=== PATIENT | female | born 1965 | race American Indian/Alaskan Native ===

== ENCOUNTER 2016-12-03 02:47 | Emergency (ER) | payer MEDICAID ==
--- NOTE | 2016-12-03 04:41 | XRay Report ---
FINAL REPORT PROCEDURE: XR CHEST ROUTINE 2V TECHNIQUE: PA and lateral chest radiographs were obtained. CPT 39294 HISTORY: Shortness of breath COMPARISON: No prior studies are available for comparison. FINDINGS: Heart: Normal. Mediastinum/Vessels: Normal. Lungs/Pleural space: There is scarring at the right lung apex. Lungs are clear and expanded. There are no effusions or pneumothoraces.. Bony thorax: No acute osseous abnormality. Other: There is a right-sided PICC line which is coiled in the right internal jugular vein. IMPRESSION: The heart size is normal.. There is scarring at the right lung apex. Lungs are clear and expanded. There are no effusions or pneumothoraces.. There is a right-sided PICC line which is coiled in the right internal jugular vein.
[2016-12-03 05:15] LABS: Basophils % (Auto) 0.2 % (0.0-1.8); Hematocrit 36.2 % (30.3-42.9); Hemoglobin 11.8 gm/dl (10.1-14.3); Mean Corpuscular HGB Conc 33 % (30-34); Mean Corpuscular Hemoglobin 29 pg (28-32); Mean Corpuscular Volume 89 fl (79-97); Platelet Count 213 K/mm3 (140-440); Red Blood Count 4.05 M/mm3 (3.65-5.03); Red Cell Distribution Width 14.4 % (13.2-15.2); White Blood Count 5.9 K/mm3 (4.5-11.0)
[2016-12-03 05:22] LABS: Anion Gap 17 mmol/L; Blood Urea Nitrogen 12 mg/dL (7-17); Calcium 9.1 mg/dL (8.4-10.2); Carbon Dioxide 29 mmol/L (22-30); Chloride 96.8 mmol/L (98-107); Glucose 225 mg/dL (65-100); Potassium 4.4 mmol/L (3.6-5.0); Sodium 138 mmol/L (137-145)
[2016-12-03] MEDS ORDERED: DUONEB 0.5 MG-3 MG/3 ML SOLN IH ONE (08:51)
[2016-12-03] MEDS ORDERED: MOTRIN PO ONE (08:52)
[2016-12-03] MEDS ORDERED: TESSALON PERLES PO ONE (08:52)
[2016-12-03] MEDS ORDERED: LIDOCAINE VISCOUS 2% PO ONE (08:52)
[2016-12-03] MEDS ORDERED: ZITHROMAX PO ONE (09:42)
[2016-12-03] MEDS ORDERED: NORCO 5/325 PO ONE (09:45)
--- NOTE | 2016-12-03 10:01 | Emergency Department Report ---
HPI - General Chief Complaint: Dyspnea/Respdistress Time Seen by Provider: 12/03/16 08:51 - HPI HPI: The patient is a 51-year-old female who presents for evaluation of cough and dyspnea. The patient has a history of COPD. The patient reports cough for the past 24 hours, productive of yellow sputum, constant and severe, associated with bilateral aching chest wall pain, moderate in severity, scratching in quality soreness of the throat, mild in severity, exacerbated with swallowing, and moderate to severe dyspnea, exacerbated with exertion, constant since last night, improved with breathing treatments. The patient denies headache, syncope , hemoptysis, dysphonia, difficulty tolerating secretions, unilateral leg swelling, recent immobilization, history of DVT or PE, recent cancer, history of familial coagulation disorder. ED Past Medical Hx - Past Medical History Previous Medical History?: Yes Hx Congestive Heart Failure: No Hx Diabetes: Yes (no meds) Hx Asthma: No Hx COPD: Yes Additional medical history: Lung CA in 2008, treated and cured with radiation therapy only. Bronchitis. - Surgical History Past Surgical History?: Yes Additional Surgical History: c section, Chest tube to r) chest knee surgery, biopsy - Social History Smoking Status: Former Smoker Substance Use Type: None - Medications Home Medications: Home Medications Medication Instructions Recorded Confirmed Last Taken Type Albuterol Sulfate [Ventolin HFA] 2 puff IH Q4H PRN #1 hfa.aer.ad 07/03/1312/11/14 Rx Ibuprofen [Motrin 800 MG tab] 800 mg PO TID PRN #20 tablet 09/30/14 12/03/16 Rx ALBUTEROL NEB's [Proventil 0.083% 2.5 mg IH TID PRN #1 box 02/06/16 12/03/16 Unknown Rx NEBS] Montelukast [Singulair] 10 mg PO QPM #30 tablet 02/06/16 12/03/16 Unknown Rx ALBUTEROL Inhaler [ProAir HFA 2 puff IH QID PRN #1 inhalation 12/03/16 Unknown Rx Inhaler] Azithromycin [Zithromax Z-JANAE] 250 mg PO QDAY #6 tablet 12/03/16 Unknown Rx Benzonatate [Tessalon Perles] 100 mg PO Q8HR #14 capsule 12/03/16 Unknown Rx Fluticasone/Salmeterol [Advair 1 puff IH BID #1 disk.w.dev 12/03/16 Unknown Rx Diskus 500-50 mcg] Ipratropium/Albuterol Sulfate 1 spray IH QID #1 aer.w.adap 12/03/16 Unknown Rx [Combivent Respimat] Prednisone [predniSONE 10 mg 10 mg PO .TAPER #1 tab.ds.pk 12/03/16 Unknown Rx (6-Day Pack, 21 Tabs)] traMADol [Ultram 50 MG tab] 50 mg PO Q6HR PRN #12 tablet 12/03/16 Unknown Rx ED Review of Systems ROS: Stated complaint: COUGH, SORE THROAT,FEVER Other details as noted in HPI Constitutional: denies: fever ENT: reports throat pain Respiratory: reports cough, shortness of breath Cardiovascular: reports chest pain Endocrine: denies unexplained weight loss or gain Gastrointestinal: denies: abdominal pain, nausea Genitourinary: denies: dysuria Musculoskeletal: denies: leg swelling Skin: denies: rash Neurological: denies: headache Hematological/Lymphatic: denies: easy bleeding or easy bruising Psych: denies sadness or hopelessness Physical Exam - Physical Exam Vital Signs: Vital Signs 12/03/16 12/03/16 12/03/16 03:06 08:38 08:39 Temperature 99.2 F Pulse Rate 110 H 101 H Respiratory 22 18 18 Rate Blood Pressure 118/77 Blood Pressure 116/75 [Left] O2 Sat by Pulse 93 94 94 Oximetry Physical Exam: General: well-nourished, well-developed, no acute distress Head: Normocephalic, atraumatic Eyes: normal sclera ENT: Mucous membranes are pink and moist , bilateral nasal congestion present Neck: trachea midline, neck supple, No neck stiffness, no cervical adenopathy Respiratory: Mildly diminished Cardio: S1 and S2 present, no murmurs, rubs, gallops, capillary refill is brisk Abdomen: Normoactive bowel sounds, soft abdomen, no rigidity, no guarding or rebound tenderness Chest WALL/Back: No tenderness to palpation of the chest wall, no CVA tenderness with percussion Musc: No pitting edema Skin: No rash Neuro: no facial drooping, normal speech Psych: Normal affect ED Course Vital Signs 12/03/16 12/03/16 12/03/16 03:06 08:38 08:39 Temperature 99.2 F Pulse Rate 110 H 101 H Respiratory 22 18 18 Rate Blood Pressure 118/77 Blood Pressure 116/75 [Left] O2 Sat by Pulse 93 94 94 Oximetry ED Medical Decision Making - Lab Data Result diagrams: 12/03/16 04:37 12/03/16 04:37 - Medical Decision Making The patient was seen and examined by myself. The patient is placed on a nuclear monitoring technician and continuous pulse ox. On initial evaluation, the patient was found to be in no distress. Evaluation orders were placed. The patient is given a breathing treatment, Tessalon Perles for cough, viscous lidocaine and Motrin for sore throat, and a tablet of azithromycin. Chest x-ray negative for focal consolidation, pleural effusions, pulmonary congestion, pneumothorax, or other acute cardio pulmonary disease process. Lab results revealed mild hyperglycemia of 225, and are grossly not concerning, including negative influenza screen. The patient is given a prescription for a prednisone taper pack. The patient was reevaluated and reported that their symptoms were markedly improved. On reexamination the patient is found to have normal respiratory rate and O2 sat on pulse oximetry, with no costal retractions or diminishment of breath sounds on auscultation. The patient is stable for discharge with outpatient follow-up. The patient is given follow-up and return instructions. The patient expressed understanding and agreed with the plan. The patient is discharged in stable condition. Critical care attestation.: If time is entered above; I have spent that time in minutes in the direct care of this critically ill patient, excluding procedure time. ED Disposition Clinical Impression: Acute exacerbation of COPD with asthma, URI, acute Disposition: DISCHARGED TO HOME OR SELFCARE Is pt being admited?: No Does the pt Need Aspirin: No Condition: Stable Instructions: Asthma (ED) Referrals: PRIMARY CARE, [Primary Care Provider] - 3-5 Days Time of Disposition: 09:34
[2016-12-03 12:26] VITALS: BP 116/74
== END 2016-12-03 11:13 | disposition home or self-care (01) ==
LOC: ED 02:47
DX: J44.1 Chronic obstructive pulmonary disease with (acute) exacerbation (principal); J06.9 Acute upper respiratory infection, unspecified; E11.9 Type 2 diabetes mellitus without complications; Z87.891 Personal history of nicotine dependence
CPT/HCPCS: 36415; 71020; 80048; 84484; 85025; 87400; 93005; 93010; 94640

== ENCOUNTER 2016-12-19 17:44 | Emergency (ER) | payer MEDICAID ==
[2016-12-19 20:06] LABS: Basophils % (Auto) 1.3 % (0.0-1.8); Hematocrit 37.4 % (30.3-42.9); Hemoglobin 12.2 gm/dl (10.1-14.3); Mean Corpuscular HGB Conc 33 % (30-34); Mean Corpuscular Hemoglobin 30 pg (28-32); Mean Corpuscular Volume 90 fl (79-97); Platelet Count 290 K/mm3 (140-440); Red Blood Count 4.16 M/mm3 (3.65-5.03); Red Cell Distribution Width 14.4 % (13.2-15.2); White Blood Count 6.9 K/mm3 (4.5-11.0)
[2016-12-19 20:27] LABS: Anion Gap 16 mmol/L; Blood Urea Nitrogen 9 mg/dL (7-17); Calcium 9.2 mg/dL (8.4-10.2); Carbon Dioxide 29 mmol/L (22-30); Chloride 97.6 mmol/L (98-107); Glucose 122 mg/dL (65-100); Potassium 3.9 mmol/L (3.6-5.0); Sodium 139 mmol/L (137-145)
[2016-12-19] MEDS ORDERED: PROVENTIL IH ONE (22:06)
[2016-12-19] MEDS ORDERED: DUONEB 0.5 MG-3 MG/3 ML SOLN IH ONE (22:06)
--- NOTE | 2016-12-19 22:07 | Emergency Department Report ---
ED Shortness of Breath HPI - General Chief Complaint: Dyspnea/Respdistress Stated Complaint: SOB Time Seen by Provider: 12/19/16 21:54 Source: patient Mode of arrival: Wheelchair Limitations: No Limitations - History of Present Illness Initial Comments: This is a 51-year-old female who reports long-standing history of COPD. She reports 2 weeks ago having URI this settled into her chest. She was given antibiotics at that time as well as steroids. She states since then she has continued to have some increased dyspnea. She feels that they're mucous plugs that are difficult to clear. She has been using her nebulizers at home with subjective improvement. She was seen by her primary doctor earlier this week who encouraged her to continue with her nebulizers for now. Associated with this. She states she turned her oxygen from 2 L to 3 L and is tolerating her symptoms much better with this. She denies specific chest pain associated with this. MD Complaint: shortness of breath Onset/Timin -: week(s) Severity: mild Consistency: constant Improves With: oxygen, rest Worsens With: exertion Known History Of: COPD Context: recent URI Associated Symptoms: cough - Related Data Previous Rx's Medication Instructions Recorded Last Taken Type Albuterol Sulfate [Ventolin HFA] 2 puff IH Q4H PRN #1 hfa.aer.ad 07/03/13 Rx Ibuprofen [Motrin 800 MG tab] 800 mg PO TID PRN #20 tablet 09/30/14 12/10/14 Rx ALBUTEROL NEB's [Proventil 0.083% 2.5 mg IH TID PRN #1 box 02/06/16 Unknown Rx NEBS] Montelukast [Singulair] 10 mg PO QPM #30 tablet 02/06/16 Unknown Rx ALBUTEROL Inhaler [ProAir HFA 2 puff IH QID PRN #1 inhalation 12/03/16 Unknown Rx Inhaler] Azithromycin [Zithromax Z-JANAE] 250 mg PO QDAY #6 tablet 12/03/16 Unknown Rx Benzonatate [Tessalon Perles] 100 mg PO Q8HR #14 capsule 12/03/16 Unknown Rx Fluticasone/Salmeterol [Advair 1 puff IH BID #1 disk.w.dev 02/15/17 Unknown Rx Diskus 500-50 mcg] Ipratropium/Albuterol Sulfate 1 spray IH QID #1 aer.w.adap 12/03/16 Unknown Rx [Combivent Respimat] Prednisone [predniSONE 10 mg 10 mg PO .TAPER #1 tab.ds.pk 12/03/16 Unknown Rx (6-Day Pack, 21 Tabs)] traMADol [Ultram 50 MG tab] 50 mg PO Q6HR PRN #12 tablet 12/03/16 Unknown Rx ALBUTEROL NEB's [Proventil 0.083% 2.5 mg IH ONCE #30 nebu 12/19/16 Unknown Rx NEBS] Allergies Allergy/AdvReac Type Severity Reaction Status Date / Time atorvastatin calcium Allergy Shortness Verified 12/19/16 17:58 [From Lipitor] of Breath cyclobenzaprine HCl Allergy Unknown Verified 12/19/16 17:58 [From Flexeril] sulfamethoxazole Allergy Shortness Verified 12/19/16 17:58 [From Bactrim] of Breath trimethoprim [From Bactrim] Allergy Shortness Verified 12/19/16 17:58 of Breath ED Review of Systems ROS: Stated complaint: SOB Other details as noted in HPI Constitutional: denies: chills, fever Eyes: denies: eye pain, eye discharge, vision change ENT: denies: ear pain, throat pain Respiratory: cough, shortness of breath, SOB with exertion, wheezing Cardiovascular: denies: chest pain, palpitations Endocrine: no symptoms reported Gastrointestinal: denies: abdominal pain, nausea, diarrhea Genitourinary: denies: urgency, dysuria, discharge Musculoskeletal: denies: back pain, joint swelling, arthralgia Skin: denies: rash, lesions Neurological: denies: headache, weakness, paresthesias Psychiatric: denies: anxiety, depression Hematological/Lymphatic: denies: easy bleeding, easy bruising ED Past Medical Hx - Past Medical History Hx Congestive Heart Failure: No Hx Diabetes: Yes (no meds) Hx Asthma: No Hx COPD: Yes Additional medical history: Lung CA in 2008, treated and cured with radiation therapy only. Bronchitis. - Surgical History Additional Surgical History: c section, Chest tube to r) chest knee surgery, biopsy - Social History Smoking Status: Never Smoker Substance Use Type: None - Medications Home Medications: Home Medications Medication Instructions Recorded Confirmed Last Taken Type Albuterol Sulfate [Ventolin HFA] 2 puff IH Q4H PRN #1 hfa.aer.ad 07/03/1312/11/14 Rx Ibuprofen [Motrin 800 MG tab] 800 mg PO TID PRN #20 tablet 09/30/14 12/03/16 Rx ALBUTEROL NEB's [Proventil 0.083% 2.5 mg IH TID PRN #1 box 02/06/16 12/03/16 Unknown Rx NEBS] Montelukast [Singulair] 10 mg PO QPM #30 tablet 02/06/16 12/03/16 Unknown Rx ALBUTEROL Inhaler [ProAir HFA 2 puff IH QID PRN #1 inhalation 12/03/16 Unknown Rx Inhaler] Azithromycin [Zithromax Z-JANAE] 250 mg PO QDAY #6 tablet 12/03/16 Unknown Rx Benzonatate [Tessalon Perles] 100 mg PO Q8HR #14 capsule 12/03/16 Unknown Rx Fluticasone/Salmeterol [Advair 1 puff IH BID #1 disk.w.dev 12/03/16 Unknown Rx Diskus 500-50 mcg] Ipratropium/Albuterol Sulfate 1 spray IH QID #1 aer.w.adap 12/03/16 Unknown Rx [Combivent Respimat] Prednisone [predniSONE 10 mg 10 mg PO .TAPER #1 tab.ds.pk 12/03/16 Unknown Rx (6-Day Pack, 21 Tabs)] traMADol [Ultram 50 MG tab] 50 mg PO Q6HR PRN #12 tablet 12/03/16 Unknown Rx ALBUTEROL NEB's [Proventil 0.083% 2.5 mg IH ONCE #30 nebu 12/19/16 Unknown Rx NEBS] ED Physical Exam - General Limitations: No Limitations General appearance: alert, in no apparent distress - Head Head exam: Present: atraumatic, normocephalic - Eye Eye exam: Present: normal appearance, EOMI - ENT ENT exam: Present: normal orophraynx, mucous membranes moist - Neck Neck exam: Present: normal inspection - Respiratory Respiratory exam: Present: wheezes, decreased breath sounds. Absent: respiratory distress, rales, rhonchi - Cardiovascular Cardiovascular Exam: Present: regular rate, normal rhythm. Absent: systolic murmur, diastolic murmur, rubs, gallop - GI/Abdominal GI/Abdominal exam: Present: soft, normal bowel sounds. Absent: distended, tenderness - Extremities Exam Extremities exam: Present: normal inspection. Absent: pedal edema, calf tenderness - Back Exam Back exam: Present: normal inspection. Absent: paraspinal tenderness, vertebral tenderness - Neurological Exam Neurological exam: Present: alert, oriented X3 - Psychiatric Psychiatric exam: Present: normal affect, normal mood - Skin Skin exam: Present: warm, dry, intact, normal color. Absent: rash ED Course Vital Signs 12/19/16 17:58 Temperature 98.9 F Pulse Rate 106 H Respiratory 28 H Rate Blood Pressure 136/101 O2 Sat by Pulse 95 Oximetry - Reevaluation(s) Reevaluation #1: 12/19/16 23:45 Patient is comfortable and well-appearing here. Based on lab studies as well as chest x-ray, I do not feel there is an acute process that is occurring. I suspect this is ongoing chronic bronchitis. I did encourage patient to continue on her current regimen. She has been given albuterol nebulizer here as well as a DuoNeb. The appropriate treatment for now is keeping her oxygen at 3 L for better comfortable. Patient is agreeable with plan. ED Medical Decision Making - Lab Data Result diagrams: 12/19/16 19:54 12/19/16 19:54 - Radiology Data Radiology results: report reviewed interpreted by me: Chest x-ray reported by the radiologist as no acute. There is evidence of chronic changes. Right upper lobe scarring. Decline in place. Critical care attestation.: If time is entered above; I have spent that time in minutes in the direct care of this critically ill patient, excluding procedure time. ED Disposition Clinical Impression: Chronic bronchitis with COPD (chronic obstructive pulmonary disease) Disposition: DISCHARGED TO HOME OR SELFCARE Is pt being admited?: No Does the pt Need Aspirin: No Condition: Stable Instructions: Chronic Bronchitis (ED) Additional Instructions: Keep your oxygen at 3 L by nasal cannula as needed for comfort. Use your nebulized treatments regularly. Prescriptions: ALBUTEROL NEB's [Proventil 0.083% NEBS] 2.5 mg IH ONCE #30 nebu Referrals: PRIMARY CAREMD [Primary Care Provider] - 3-5 Days Time of Disposition: 22:08
[2016-12-19 23:41] VITALS: BP 125/82
--- NOTE | 2016-12-20 10:04 | XRay Report ---
ROUTINE CHEST, TWO VIEWS: HISTORY: Shortness of breath. Right upper lobe opacity most consistent with scarring is unchanged since 12/03/16. The lungs are clear but hyperinflated. No pleural effusion or pneumothorax. Normal heart size. A right arm PICC is unchanged in position. IMPRESSION: Right upper lobe opacity most consistent with chronic scarring. No acute process. Emphysematous changes.
== END 2016-12-19 23:41 | disposition home or self-care (01) ==
LOC: ED 17:44
DX: J44.1 Chronic obstructive pulmonary disease with (acute) exacerbation (principal); E11.9 Type 2 diabetes mellitus without complications
CPT/HCPCS: 36415; 71020; 80048; 84484; 85025; 93005; 93010; 94640; 99284